=== PATIENT | male | born 1975 | race Caucasian/White ===

== ENCOUNTER → 2017-03-28 | Outpatient (REF) | payer BC ==
[~2017-03-28] MED LIST: CLAR1TAB13 PO
[2017-03-28 11:40] LABS: BASO # 0.1 10^3/uL (0.0-0.2); BASO % 1.4 % (0.0-1.0); EOS # 0.2 10^3/uL (0.0-0.50); EOS % 2.4 % (0.0-3.0); IMMATURE GRANULOCYTE % 0.6 % (0-0); LYMPH % 30.9 % (24.0-44.0); MEAN CORPUSCULAR HEMOGLOBIN 18.1 pg (27.0-33.0); MEAN CORPUSCULAR HEMOGLOBIN 18.2 pg (27.0-33.0); MEAN CORPUSCULAR HGB CONC 30.4 g/dl (32.0-36.5); MEAN CORPUSCULAR VOLUME 59.5 fl (80.0-96.0); MEAN CORPUSCULAR VOLUME 59.9 fl (80.0-96.0); MONO # 0.5 10^3/uL (0.0-0.8); MONO % 7.8 % (0.0-5.0); NEUTROPHILS # 3.7 10^3/uL (1.8-7.7); NEUTROPHILS % 56.9 % (36.0-66.0); PLATELET COUNT, AUTOMATED 203 10^3/uL (150-450); PLATELET COUNT, AUTOMATED 206 10^3/uL (150-450); RED CELL DISTRIBUTION WIDTH 17.2 % (11.5-14.5); RED CELL DISTRIBUTION WIDTH 17.3 % (11.5-14.5); WHITE BLOOD COUNT 6.6 10^3/uL (4.0-10.0)
[2017-03-28 12:09] LABS: FREE T4 1.18 NG/DL (0.76-1.46); PERCENT SATURATION 21.4 % (19.7-50.0)
[2017-03-28 12:22] LABS: ALBUMIN 4.2 GM/DL (3.2-5.2); ALBUMIN/GLOBULIN RATIO 1.27 (1.00-1.93); ALKALINE PHOSPHATASE 88 U/L (45-117); ALT/SGPT 33 U/L (12-78); ANION GAP 6 MEQ/L (8-16); AST/SGOT 15 U/L (7-37); BILIRUBIN,TOTAL 0.8 MG/DL (0.2-1.0); BLOOD UREA NITROGEN 15 MG/DL (7-18); CALCIUM LEVEL 8.8 MG/DL (8.5-10.1); CARBON DIOXIDE LEVEL 30 MEQ/L (21-32); CHLORIDE LEVEL 102 MEQ/L (98-107); CREATININE FOR GFR 1.03 MG/DL (0.70-1.30); GLOMERULAR FILTRATION RATE > 60.0 (>60); GLUCOSE, FASTING 106 MG/DL (70-105); SODIUM LEVEL 138 MEQ/L (136-145); TOTAL PROTEIN 7.5 GM/DL (6.4-8.2)
[2017-03-29 12:47] LABS: ALBUMIN % 63.4 % (55.8-66.1); GAMMA GLOBULIN % 13.4 % (11.1-18.8)
== END ==
LOC: M SFHCCLAY 07:20
PROVIDERS: ATTEND Family Medicine
DX: K13.79 Other lesions of oral mucosa (principal); R05 Cough; R73.01 Impaired fasting glucose

== ENCOUNTER 2017-04-01 02:03 | Emergency (ER) | payer BC ==
[~2017-04-01] VITALS: Ht 182.9 cm; Wt 107.3 kg
[2017-04-01] MEDS ORDERED: CLAR1TAB13 PO (04:53)
[2017-04-01 05:01] VITALS: BP 141/85
--- NOTE | 2017-04-01 19:34 | ECGEPIP ---
Stationary ECG Study [facility] - ED Test Date: 2017-04-01 Pat Name: SHAI ZAVALA Department: Room: - Gender: M Adolescent Coordinator: PayneB: 1975 Requested By: Byrce Shepard Order Number: [id number] Reading MD: Willie Gaitan Measurements Intervals [place] Rate: 63 P: 39 OH: 145 QRS: 34 QRSD: 107 T: 6 QT: 393 QTc: 404 Interpretive Statements SINUS RHYTHM NO OLD ECG FOR COMPARISON Electronically Signed On 04-01-2017 19:34:17 EST by Willie Gaitan
== END 2017-04-01 05:35 | disposition home or self-care (01) ==
LOC: M ED 02:03
DX: R00.2 Palpitations (principal)

== ENCOUNTER → 2017-04-18 | Outpatient (CLI) | payer OTHER | LOC: M CLY 09:38 | DX: M50.30 Other cervical disc degeneration, unspecified cervical region (principal) | CPT/HCPCS: 71046 ==

== ENCOUNTER → 2017-04-20 | Outpatient (CLI) | payer OTHER | LOC: M EKG 11:01 | DX: R00.2 Palpitations (principal) | CPT/HCPCS: 93225 ==

== ENCOUNTER → 2018-01-24 | Outpatient (REF) | payer OTHER | LOC: M SFHCCLAY 16:10 | DX: J02.9 Acute pharyngitis, unspecified (principal) ==

== ENCOUNTER → 2018-04-29 | Outpatient (REF) | payer OTHER ==
[2018-05-02 00:06] LABS: Lyme Disease IgG/IgM Antibodie <0.91 ISR (0.00-0.90); Lyme Disease IgM Ab Quantitati <0.80 index (0.00-0.79)
== END ==
LOC: M SFHCCLAY 13:26
PROVIDERS: ATTEND Family Medicine
DX: M79.10 Myalgia, unspecified site (principal)

== ENCOUNTER → 2019-07-17 | Outpatient (CLI) | payer OTHER ==
--- NOTE | 2019-07-17 15:24 | REP ---
Chest x-ray: Two views. History: Bronchitis. Comparison chest x-ray: April 18, 2017. Findings: The lungs are symmetrically aerated and clear. Pleural angles are sharp. Heart size is normal. No significant bony abnormality is seen. Pulmonary vasculature is not increased. There is a mild dextro-convex curvature in the thoracic spine. Impression: No acute disease. Electronically Signed by Diaz Maurice MD 07/17/2019 03:16 P
== END ==
LOC: M CLY 14:41
PROVIDERS: ATTEND Family Medicine
DX: J40 Bronchitis, not specified as acute or chronic (principal)

== ENCOUNTER → 2019-07-29 | Outpatient (CLI) | payer OTHER ==
--- NOTE | 2019-07-30 04:23 | REP ---
Clinical: Cervical radiculopathy. Technique: AP, lateral, flexion/extension, bilateral oblique, and open-mouth views of the cervical spine. Comparison: 04/18/2017. Findings: Alignment and lordosis maintained. Minimal degenerative changes at C4-5 and C5-6 includes small anterior spurring with minimal endplate sclerosis and subtle disc space narrowing. Findings are essentially unchanged compared to prior examination. No acute fracture / compression injury or subluxation. Open mouth view demonstrates normal C1-C2 articulation and odontoid process. Impression: Mild degenerative changes at C4-5 and C5-6. Electronically Signed by Arash Taylor MD 07/30/2019 04:14 A
== END ==
LOC: M CLY 08:20
PROVIDERS: ATTEND Family Medicine
DX: M54.12 Radiculopathy, cervical region (principal)

== ENCOUNTER → 2020-01-20 | Outpatient (REF) | payer OTHER | LOC: M SFHCCLAY 09:01 | PROVIDERS: ATTEND Family Medicine | DX: R30.0 Dysuria (principal) ==

== ENCOUNTER → 2020-07-19 | Outpatient (CLI) | payer OTHER ==
--- NOTE | 2020-07-19 10:39 | REP ---
INDICATION: R07.89 history of left lower chest pain and left upper abdominal pain COMPARISON: 07/17/2019 TECHNIQUE: PA and lateral. FINDINGS: The mediastinum and cardiac silhouette are normal. The lung vasquez are clear and without acute consolidation, effusion, or pneumothorax. The skeletal structures are intact and normal. IMPRESSION: No acute cardiopulmonary process. <Electronically signed by Arash Taylor > 07/19/20 [id number]
== END ==
LOC: M CLY 10:15
PROVIDERS: ATTEND Family Medicine
DX: R07.89 Other chest pain (principal)

== ENCOUNTER → 2020-07-29 | Outpatient (CLI) | payer OTHER ==
--- NOTE | 2020-07-29 12:49 | REP ---
INDICATION: RT EPIDIDYMAL TENDERNESS, SUSPECT CYST COMPARISON: None. TECHNIQUE: Flores scale and color Doppler evaluation using linear and curved array transducer with color Doppler evaluation. FINDINGS: The testicles and epididymi are relatively normal in contour, size, echogenicity, vascularity and overall appearance. Incidental 2 mm left testicular cyst appears essentially benign. There is no evidence for intratesticular mass lesion, infectious/inflammatory process, or torsion. Small symmetric hydroceles are nonspecific. No varicoceles are identified. Right testicle measures 4.6 x 2.4 x 3.1 cm. Left testicle measures 4.2 x 2.6 x 3.0 cm. IMPRESSION: Essentially normal scrotal ultrasound. <Electronically signed by Arash Taylor > 07/29/20 [id number]
== END ==
LOC: M RAD 12:07
PROVIDERS: ATTEND Family Medicine
DX: N45.1 Epididymitis (principal)

== ENCOUNTER → 2021-02-02 | Outpatient (REF) | payer OTHER ==
[2021-02-02 11:51] LABS: BASO # 0.1 10^3/uL (0.0-0.2); BASO % 1.2 % (0.0-1.0); EOS # 0.2 10^3/uL (0.0-0.5); EOS % 2.4 % (0.0-3.0); HEMATOCRIT 45.3 % (42.0-52.0); HEMOGLOBIN 13.3 g/dl (13.5-17.5); LYMPH # 2.6 10^3/uL (1.5-5.0); LYMPH % 34.2 % (24.0-44.0); MEAN CORPUSCULAR HGB CONC 29.4 g/dl (32.0-36.5); MEAN CORPUSCULAR VOLUME 61.3 fl (80.0-96.0); MONO # 0.6 10^3/uL (0.0-0.8); MONO % 8.2 % (2.0-8.0); NEUTROPHILS % 53.2 % (36.0-66.0); PLATELET COUNT, AUTOMATED 230 10^3/uL (150-450); RED BLOOD COUNT 7.39 10^6/uL (4.30-6.10); WHITE BLOOD COUNT 7.6 10^3/uL (4.0-10.0)
[2021-02-02 12:30] LABS: ALBUMIN 4.2 GM/DL (3.2-5.2); ALT/SGPT 27 U/L (12-78); BILIRUBIN,TOTAL 0.6 MG/DL (0.2-1.0); BLOOD UREA NITROGEN 16 MG/DL (7-18); CALCIUM LEVEL 9.4 MG/DL (8.5-10.1); CARBON DIOXIDE LEVEL 32 MEQ/L (21-32); CHLORIDE LEVEL 104 MEQ/L (98-107); CREATININE FOR GFR 0.94 MG/DL (0.70-1.30); GLOMERULAR FILTRATION RATE > 60.0 (>60); GLUCOSE, FASTING 106 MG/DL (70-100); LIPASE 147 U/L (73-393); POTASSIUM SERUM 4.8 MEQ/L (3.5-5.1); SODIUM LEVEL 136 MEQ/L (136-145); TOTAL PROTEIN 7.6 GM/DL (6.4-8.2)
[2021-02-03 07:27] LABS: IRON (FE) 72 UG/DL (65-175); PERCENT SATURATION 22.2 % (19.7-50.0); TOTAL IRON BINDING CAPACITY 324 UG/DL (250-450)
== END ==
LOC: M SFHCCLAY 09:00
PROVIDERS: ATTEND Family Medicine
DX: R10.12 Left upper quadrant pain (principal)

== ENCOUNTER → 2021-02-04 | Outpatient (REF) | payer OTHER | LOC: M SFHCCLAY 08:14 | PROVIDERS: ATTEND Family Medicine | DX: R71.8 Other abnormality of red blood cells (principal) ==

== ENCOUNTER → 2021-02-10 | Outpatient (CLI) | payer OTHER ==
[~2021-02-10] MED LIST changes: +GASTROGRAFIN SOLUTION 30ML (Q9963) As Ordered ONE; +ISOVUE-370 76% 100ML VIAL As Ordered ONE
--- NOTE | 2021-02-10 17:02 | REP ---
INDICATION: LUQ PAIN. COMPARISON: None. TECHNIQUE: Standard helical technique after the intravenous administration of 100 cc Isovue 370. Oral bowel preparatory contrast was also administered prior to the exam. FINDINGS: The lung bases are clear. In the medial segment of the left lobe of the liver there is a 2.4 cm sized mixed density lesion. The liver is otherwise unremarkable. The spleen appears mildly enlarged. The gallbladder, pancreas, adrenal glands, and kidneys are within normal limits. Two 9 mm sized focal areas of decreased density are seen 1 in each kidney. The abdominal aorta and para-aortic regions are within normal limits. The bowel loops and the mesenteries are within normal limits. There is no evidence of a mass or adenopathy. There is no free fluid or free air. Bone window technique throughout the examination shows the osseous structures to be within normal limits. IMPRESSION: 1. There is a lesion in the medial segment of the left lobe of the liver as described above. I cannot confirm benignity at this time since this is a single phase exam. Pre and post gadolinium enhanced hepatic MRI is recommended for complete evaluation. 2. The spleen is full sized, possibly slightly enlarged. Ultrasonography with splenic volumetric index calculation would give further information if clinically relevant. 3. Probable small bilateral renal cortical cysts, however, they are too small for precise CT characterization on this single-phase exam. These can also be evaluated with the aforementioned recommended MRI provided they are included in the region of interest. 4. Although there is no evidence of a bowel abnormality that does not obviate further imaging with colonoscopy if a bowel abnormality is of clinical concern. <Electronically signed by Aakash Patton > 02/10/21 [id number]
== END ==
LOC: M RAD 15:04
PROVIDERS: ATTEND Family Medicine
DX: K76.9 Liver disease, unspecified (principal); E78.2 Mixed hyperlipidemia; I10 Essential (primary) hypertension; R10.12 Left upper quadrant pain; Z88.8 Allergy status to other drugs, medicaments and biological substances
CPT/HCPCS: 74177; Q9963; Q9967

== ENCOUNTER → 2021-02-18 | Outpatient (CLI) | payer OTHER ==
[~2021-02-18] MED LIST changes: -GASTROGRAFIN SOLUTION 30ML (Q9963) As Ordered ONE; -ISOVUE-370 76% 100ML VIAL As Ordered ONE; +PROHANCE 279.3MG/ML 15ML VIAL As Ordered ONE; +PROHANCE 279.3MG/ML 5ML VIAL As Ordered ONE
--- NOTE | 2021-02-18 15:58 | REP ---
INDICATION: ABN CT, MIXED DENSITY LESION LT LOBE OF LIVER. COMPARISON: None. TECHNIQUE: Pre and post contrast 3T MRI of the liver was performed utilizing various sequences. Gadolinium utilized: 20 cc ProHance FINDINGS: Seen in the medial segment of the left lobe of the liver there is a 2 x 1.7 cm sized focal T2 hyper signal lesion. The lesion shows increasing peripheral nodular enhancement in till it is completely enhanced on late phase imaging. There are no other liver lesions. There is mild splenomegaly. There is no para-aortic adenopathy. The pancreas and adrenal glands are within normal limits. There are small bilateral renal cysts. There is no free fluid. The cortical and marrow signal seen throughout the imaged osseous structures is within normal limits. IMPRESSION: 1. The low-density lesion seen on the prior CT represents the enhancing lesion seen today in the medial segment of the left lobe of the liver and is consistent with a benign hepatic hemangioma. 2. There is mild splenomegaly of uncertain etiology. 3. Small bilateral renal cysts <Electronically signed by Aakash Patton > 02/18/21 [id number]
== END ==
LOC: M RAD 14:16
PROVIDERS: ATTEND Family Medicine
DX: R93.5 Abnormal findings on diagnostic imaging of other abdominal regions, including retroperitoneum (principal); R16.1 Splenomegaly, not elsewhere classified; N28.1 Cyst of kidney, acquired; K76.89 Other specified diseases of liver
CPT/HCPCS: 74183; A9576

== ENCOUNTER → 2021-08-17 | Outpatient (CLI) | payer OTHER ==
[~2021-08-17] MED LIST changes: -PROHANCE 279.3MG/ML 15ML VIAL As Ordered ONE; -PROHANCE 279.3MG/ML 5ML VIAL As Ordered ONE
== END ==
LOC: M RAD 11:58
PROVIDERS: ATTEND Family Medicine
DX: K11.8 Other diseases of salivary glands (principal); D37.030 Neoplasm of uncertain behavior of the parotid salivary glands

== ENCOUNTER → 2021-09-19 | Outpatient (CLI) | payer OTHER ==
[~2021-09-19] MED LIST changes: +LIDOCAINE 1% MDV 20ML VIAL As Ordered ONE; +NEXI20CA PO
[2021-09-19 09:59] VITALS: BP 173/119
== END ==
LOC: M IRPRO 09:10
PROVIDERS: ATTEND Otolaryngology
DX: D11.9 Benign neoplasm of major salivary gland, unspecified (principal)

== ENCOUNTER 2022-02-02 10:06 | Emergency (ER) | payer OTHER ==
[~2022-02-02] VITALS: Ht 182.9 cm; Wt 109.8 kg
[~2022-02-02 10:06] MED LIST changes: -LIDOCAINE 1% MDV 20ML VIAL As Ordered ONE
[2022-02-02 12:58] LABS: BASO # 0.1 10^3/uL (0.0-0.2); BASO % 0.4 % (0.0-1.0); EOS # 0.2 10^3/uL (0.0-0.5); EOS % 0.9 % (0.0-3.0); HEMATOCRIT 42.8 % (42.0-52.0); LYMPH # 1.7 10^3/uL (1.5-5.0); LYMPH % 10.3 % (24.0-44.0); MEAN CORPUSCULAR HEMOGLOBIN 18.6 pg (27.0-33.0); MEAN CORPUSCULAR HGB CONC 30.4 g/dl (32.0-36.5); MEAN CORPUSCULAR VOLUME 61.3 fl (80.0-96.0); MONO # 1.1 10^3/uL (0.0-0.8); MONO % 6.4 % (2.0-8.0); NEUTROPHILS # 13.4 10^3/uL (1.5-8.5); NEUTROPHILS % 81.4 % (36.0-66.0); PLATELET COUNT, AUTOMATED 210 10^3/uL (150-450); RED BLOOD COUNT 6.98 10^6/uL (4.30-6.10); WHITE BLOOD COUNT 16.5 10^3/uL (4.0-10.0)
[2022-02-02] MEDS ORDERED: GI COCKTAIL 50ML BTL(HYOSCYAMINE/MAALOX/LIDOCAINE VISCOUS)(1:3:1) PO ONE (13:20)
[2022-02-02 13:36] LABS: ALBUMIN 4.1 GM/DL (3.2-5.2); ALT/SGPT 235 U/L (12-78); BILIRUBIN,DIRECT 0.8 MG/DL (0.0-0.2); BILIRUBIN,TOTAL 2.1 MG/DL (0.2-1.0); BLOOD UREA NITROGEN 14 MG/DL (7-18); CALCIUM LEVEL 9.1 MG/DL (8.5-10.1); CARBON DIOXIDE LEVEL 28 MEQ/L (21-32); CHLORIDE LEVEL 103 MEQ/L (98-107); CK-MB VALUE MASS < 1.0 NG/ML (<3.6); CPK CREATINE PHOSPHOKINASE 71 U/L (39-308); CREATININE FOR GFR 1.04 MG/DL (0.70-1.30); GLOMERULAR FILTRATION RATE > 60.0 (>60); GLUCOSE, FASTING 86 MG/DL (70-100); MB/CK RELATIVE INDEX 1.41 (< OR =4); SODIUM LEVEL 136 MEQ/L (136-145); TOTAL PROTEIN 7.5 GM/DL (6.4-8.2)
[2022-02-02] MEDS ORDERED: ISOVUE-370 76% 100ML VIAL As Ordered ONE (13:49)
[2022-02-02 14:30] LABS: INR 1.04; PROTHROMBIN TIME 13.8 SECONDS (12.5-14.5)
[2022-02-02 14:31] LABS: PARTIAL THROMBOPLASTIN TIME 29.2 SECONDS (24.8-34.2)
[2022-02-02 15:01] LABS: CK-MB VALUE MASS < 1.0 NG/ML (<3.6); CPK CREATINE PHOSPHOKINASE 55 U/L (39-308); MB/CK RELATIVE INDEX 1.82 (< OR =4)
[2022-02-02 15:06] LABS: C REACTIVE PROTEIN QUANTITATIV 4.99 MG/DL (0.00-0.30); THYROID STIMULATING HORMONE 0.724 uIU/ML (0.358-3.740)
[2022-02-02 16:00] VITALS: BP 129/82
[2022-02-02] MEDS ORDERED: ACETAMINOPHEN TAB 650MG DOSE (2X325MG) PO ONE (16:55)
[2022-02-02] MEDS ORDERED: DOXY-443 PO (17:14)
== END 2022-02-02 17:44 | disposition home or self-care (01) ==
LOC: M ED 10:06
DX: R07.89 Other chest pain (principal); E78.5 Hyperlipidemia, unspecified; K21.9 Gastro-esophageal reflux disease without esophagitis; K76.0 Fatty (change of) liver, not elsewhere classified; R16.1 Splenomegaly, not elsewhere classified; N28.1 Cyst of kidney, acquired; Z79.899 Other long term (current) drug therapy
CPT/HCPCS: 71045; 71275; 74174; 76705; 80048; 80076; 82550; 82553; 83690; 84443; 84484; 85025; 85610; 85652; 85730; 86140; 86618; 87040; 87486; 87581; 87633; 87798; 93005; 93041; 94760; 99285; Q9967

== ENCOUNTER → 2022-03-15 | Outpatient (CLI) | payer OTHER ==
[~2022-03-15] MED LIST changes: +DOXY-443 PO
== END ==
LOC: M RAD 12:48
PROVIDERS: ATTEND Otolaryngology
DX: D37.030 Neoplasm of uncertain behavior of the parotid salivary glands (principal)

== ENCOUNTER → 2022-05-01 | Outpatient (REF) | payer OTHER | LOC: M SFHCDERM 17:12 | PROVIDERS: ATTEND Nurse Practitioner Family | DX: C49.0 Malignant neoplasm of connective and soft tissue of head, face and neck (principal) ==

== ENCOUNTER → 2022-06-07 | Outpatient (CLI) | payer OTHER | LOC: M SLEEP 20:00 | PROVIDERS: ATTEND Physician Assistant | DX: G47.33 Obstructive sleep apnea (adult) (pediatric) (principal); R40.0 Somnolence ==

== ENCOUNTER → 2022-07-11 | Outpatient (REF) | payer OTHER ==
[2022-07-11 20:49] LABS: ALBUMIN 4.2 G/DL (3.2-5.2); ALKALINE PHOSPHATASE 88 U/L (46-116); ALT/SGPT 23 U/L (7.0-40); AST/SGOT 14 U/L (<34); BILIRUBIN,TOTAL 0.8 MG/DL (0.3-1.2); BLOOD UREA NITROGEN 14 MG/DL (9-23); CARBON DIOXIDE LEVEL 27 MMOL/L (20-31); CHLORIDE LEVEL 104 MMOL/L (98-107); CREATININE FOR GFR 0.92 MG/DL (0.70-1.30); GLOMERULAR FILTRATION RATE > 60.0 (>60); GLUCOSE, FASTING 99 MG/DL (60-100); POTASSIUM SERUM 5.1 MMOL/L (3.5-5.1); SODIUM LEVEL 138 MMOL/L (136-145)
[2022-07-11 20:51] LABS: FOLLICLE STIMULATING HORMONE 6.2 mIU/ML (1.4-18.1); LUTEINIZING HORMONE 2.3 mIU/ML (1.5-9.3)
[2022-07-11 20:52] LABS: THYROID STIMULATING HORMONE 1.834 uIU/ML (0.55-4.78)
[2022-07-11 20:53] LABS: FREE T4 1.39 NG/DL (0.89-1.76)
== END ==
LOC: M SFHCCLAY 09:45
PROVIDERS: ATTEND Surgery
DX: N62 Hypertrophy of breast (principal)

== ENCOUNTER → 2022-09-11 | Outpatient (CLI) | payer OTHER | LOC: M WHC 15:27 | PROVIDERS: ATTEND Surgery | DX: N62 Hypertrophy of breast (principal); D24.2 Benign neoplasm of left breast ==

== ENCOUNTER → 2022-09-27 | Outpatient (CLI) | payer OTHER | LOC: M RAD 07:13 | PROVIDERS: ATTEND Otolaryngology | DX: J35.1 Hypertrophy of tonsils (principal) ==

== ENCOUNTER → 2022-10-13 | Outpatient (CLI) | payer OTHER | LOC: M RAD 16:51 | PROVIDERS: ATTEND Otolaryngology | DX: D37.030 Neoplasm of uncertain behavior of the parotid salivary glands (principal) ==

== ENCOUNTER 2023-02-22 10:08 | Day surgery (SDC) | payer OTHER ==
[~2023-02-22] VITALS: Ht 182.9 cm; Wt 105.1 kg
[~2023-02-22 10:08] MED LIST changes: +LISI20TA33 PO
[2023-02-22] MEDS: NS 1,000 ML IV ONE (10:45)
[2023-02-22] MEDS ORDERED: fentaNYL 100 MCG/2 ML INJECTION As Ordered ONE (11:33)
[2023-02-22] MEDS ORDERED: propofoL 200 MG/20 ML VIAL As Ordered ONE ×3 (11:40→12:33)
[2023-02-22] MEDS ORDERED: LIDOCAINE 2% 100MG/5ML SDV (FOR ANES.) As Ordered ONE (12:03)
[2023-02-22 13:27] VITALS: BP 125/76; TEMP 98.2; O2SAT 98
== END 2023-02-22 13:31 | disposition home or self-care (01) ==
LOC: M OPP 10:08
PROVIDERS: ATTEND Internal Medicine Gastroenterology
DX: Z12.11 Encounter for screening for malignant neoplasm of colon (principal); K64.8 Other hemorrhoids; K29.50 Unspecified chronic gastritis without bleeding; K21.00 Gastro-esophageal reflux disease with esophagitis, without bleeding; K22.89 Other specified disease of esophagus; K44.9 Diaphragmatic hernia without obstruction or gangrene; I10 Essential (primary) hypertension; K58.9 Irritable bowel syndrome, unspecified; J45.909 Unspecified asthma, uncomplicated; G47.30 Sleep apnea, unspecified; D56.9 Thalassemia, unspecified; N62 Hypertrophy of breast; Z86.14 Personal history of Methicillin resistant Staphylococcus aureus infection; Z88.8 Allergy status to other drugs, medicaments and biological substances; Z79.899 Other long term (current) drug therapy
CPT/HCPCS: 43239; 45380; 88305; J3010

== ENCOUNTER → 2023-03-29 | Outpatient (CLI) | payer OTHER | LOC: M CARPUL 10:37 | PROVIDERS: ATTEND Nurse Practitioner Family | DX: I49.3 Ventricular premature depolarization (principal); I08.1 Rheumatic disorders of both mitral and tricuspid valves ==

== ENCOUNTER → 2023-04-04 | Outpatient (REF) | payer OTHER | LOC: M SFHCCLAY 09:15 | PROVIDERS: ATTEND Physician Assistant | DX: B34.9 Viral infection, unspecified (principal); Z53.9 Procedure and treatment not carried out, unspecified reason ==

== ENCOUNTER 2023-04-30 08:54 | Day surgery (SDC) | payer OTHER ==
[~2023-04-30] VITALS: Ht 182.9 cm; Wt 112.0 kg
[2023-04-30] MEDS ORDERED: ONDANSETRON 4MG 2ML VIAL As Ordered ONE (10:24)
[2023-04-30] MEDS ORDERED: SUGAMMADEX SODIUM 500 MG/5 ML VIAL (BRIDION) As Ordered ONE (10:24)
[2023-04-30] MEDS ORDERED: ROCURONIUM BROMIDE 50MG/5ML VIAL As Ordered ONE (10:24)
[2023-04-30] MEDS ORDERED: LIDOCAINE 2% 100MG/5ML SDV (FOR ANES.) As Ordered ONE (10:24)
[2023-04-30] MEDS ORDERED: METOCLOPRAMIDE INJ 10MG/2ML VIAL As Ordered ONE (10:24)
[2023-04-30] MEDS ORDERED: propofoL 200 MG/20 ML VIAL As Ordered ONE (10:24)
[2023-04-30] MEDS ORDERED: fentaNYL 100 MCG/2 ML INJECTION As Ordered ONE ×2 (10:26→11:00)
[2023-04-30] MEDS ORDERED: MIDAZOLAM INJ 2MG/2ML VIAL As Ordered ONE (10:26)
[2023-04-30] MEDS ORDERED: fentaNYL 100 MCG/2 ML INJECTION IV PRN (11:20)
[2023-04-30] MEDS ORDERED: LR 1,000 ML IV SCH ×2 (11:20→12:00)
[2023-04-30] MEDS ORDERED: HYDROMORPHONE HCL 0.5 MG/ 0.5 ML SYRINGE IV PRN (11:20)
[2023-04-30] MEDS ORDERED: ONDANSETRON 4MG 2ML VIAL IV PRN (11:20)
[2023-04-30] MEDS ORDERED: oxyCODONE 5MG TAB PO PRN (11:20)
[2023-04-30] MEDS ORDERED: HYDROcodone/APAP LIQUID 7.5-325MG 15ML UDC (LORTAB ELIXIR) PO PRN (12:00)
[2023-04-30 12:16] VITALS: BP 123/80; TEMP 98.1; O2SAT 95
== END 2023-04-30 12:37 | disposition home or self-care (01) ==
LOC: M SDC 08:54
PROVIDERS: ATTEND Otolaryngology
DX: J35.01 Chronic tonsillitis (principal); G47.30 Sleep apnea, unspecified; I10 Essential (primary) hypertension; K21.9 Gastro-esophageal reflux disease without esophagitis; Z88.8 Allergy status to other drugs, medicaments and biological substances; Z79.899 Other long term (current) drug therapy
CPT/HCPCS: 42826; 88302; J0665; J2250; J2405; J2765; J3010

== ENCOUNTER → 2023-08-23 | Outpatient (CLI) | payer OTHER ==
[~2023-08-23] MED LIST changes: +DOXY-323 PO; -DOXY-443 PO
== END ==
LOC: M SLEEP HO 11:07
PROVIDERS: ATTEND Physician Assistant
DX: G47.33 Obstructive sleep apnea (adult) (pediatric) (principal)

== ENCOUNTER → 2023-09-10 | Outpatient (REF) | payer OTHER ==
[2023-09-10 12:41] LABS: ALBUMIN 3.7 G/DL (3.2-5.2); ALKALINE PHOSPHATASE 93 U/L (46-116); ALT/SGPT 26 U/L (7.0-40); AST/SGOT 13 U/L (<34); BLOOD UREA NITROGEN 19 MG/DL (9-23); CALCIUM LEVEL 8.9 MG/DL (8.5-10.1); CARBON DIOXIDE LEVEL 27 MMOL/L (20-31); CHLORIDE LEVEL 108 MMOL/L (98-107); CHOLESTEROL LEVEL 200 MG/DL (<200); CREATININE FOR GFR 0.92 MG/DL (0.70-1.30); GLOMERULAR FILTRATION RATE > 60.0 (>60); GLUCOSE, FASTING 115 MG/DL (60-100); HDL CHOLESTEROL 45.4 MG/DL (>40); NON-HDL-C 154.6 MG/DL; POTASSIUM SERUM 4.4 MMOL/L (3.5-5.1); SODIUM LEVEL 140 MMOL/L (136-145); TOTAL PROTEIN 6.4 G/DL (5.7-8.2); TRIGLYCERIDES LEVEL 93 MG/DL (<150)
[2023-09-10 12:42] LABS: THYROID STIMULATING HORMONE 1.053 uIU/ML (0.55-4.78)
[2023-09-11 19:07] LABS: TESTOSTERONE FREE (DIRECT) 12.5 pg/mL (6.8-21.5)
== END ==
LOC: M SFHCCLAY 08:46
PROVIDERS: ATTEND Family Medicine
DX: K21.9 Gastro-esophageal reflux disease without esophagitis (principal); E78.00 Pure hypercholesterolemia, unspecified; R53.82 Chronic fatigue, unspecified

== ENCOUNTER → 2023-12-17 | Outpatient (CLI) | payer OTHER | LOC: M SLEEP 20:00 | PROVIDERS: ATTEND Physician Assistant | DX: G47.33 Obstructive sleep apnea (adult) (pediatric) (principal) ==

== ENCOUNTER → 2024-03-04 | Outpatient (REF) | payer OTHER ==
[~2024-03-04] MED LIST changes: -DOXY-323 PO; +DOXY-441 PO
[2024-03-04 18:02] LABS: AMORPHOUS SEDIMENT SMALL (NEGATIVE); APPEARANCE, URINE HAZY (CLEAR); BACTERIA, URINE AUTO NEGATIVE (NEGATIVE); BILIRUBIN, URINE AUTO NEGATIVE (NEGATIVE); BLOOD, URINE BLOOD NEGATIVE (NEGATIVE); COLOR, URINE YELLOW (YELLOW); GLUCOSE, URINE (UA) AUTO NEGATIVE (NEGATIVE); KETONE, URINE AUTO NEGATIVE (NEGATIVE); LEUKOCYTE ESTERASE, URINE AUTO NEGATIVE (NEGATIVE); MUCUS, URINE SMALL (NEGATIVE); NITRITE, URINE AUTO NEGATIVE (NEGATIVE); PROTEIN, URINE AUTO NEGATIVE (NEGATIVE); RBC, URINE AUTO 0 /HPF (0-3); SPECIFIC GRAVITY URINE AUTO 1.019 (1.002-1.035); SQUAMOUS EPITHELIAL CELL UR AU 0 /HPF (0-6); UROBILINOGEN, URINE AUTO 0.2 mg/dL (0.0-2.0); WBC, URINE AUTO 0 /HPF (0-3)
== END ==
LOC: M SFHCCLAY 14:32
PROVIDERS: ATTEND Family Medicine
DX: Z12.5 Encounter for screening for malignant neoplasm of prostate (principal); R30.0 Dysuria
CPT/HCPCS: 81001; G0103

== ENCOUNTER → 2024-07-11 | Outpatient (REF) | payer OTHER ==
[2024-07-11 18:21] LABS: HEMOGLOBIN A1c 5.6 % (4.0-6.0)
[2024-07-11 18:28] LABS: ALBUMIN 4.4 G/DL (3.2-5.2); ALKALINE PHOSPHATASE 99 U/L (40-129); ALT/SGPT 30 U/L (7.0-40); AST/SGOT 14 U/L (<34); BILIRUBIN,TOTAL 1.1 MG/DL (0.3-1.2); BLOOD UREA NITROGEN 16 MG/DL (9-23); CARBON DIOXIDE LEVEL 27 MMOL/L (20-31); CHLORIDE LEVEL 103 MMOL/L (98-107); CHOLESTEROL LEVEL 232 MG/DL (<200); CHOLESTEROL RISK RATIO 5.22 (<5); CREATININE FOR GFR 0.96 MG/DL (0.70-1.30); GLOMERULAR FILTRATION RATE > 60.0 (>60); GLUCOSE, FASTING 104 MG/DL (60-100); HDL CHOLESTEROL 44.4 MG/DL (>40); LDL CHOLESTEROL 163.8 MG/DL (<100); NON-HDL-C 187.6 MG/DL; POTASSIUM SERUM 4.9 MMOL/L (3.5-5.1); SODIUM LEVEL 138 MMOL/L (136-145); TOTAL PROTEIN 7.3 G/DL (5.7-8.2); TRIGLYCERIDES LEVEL 119 MG/DL (<150)
== END ==
LOC: M SFHCCLAY 10:35
PROVIDERS: ATTEND Physician Assistant
DX: I10 Essential (primary) hypertension (principal); N52.9 Male erectile dysfunction, unspecified; K21.9 Gastro-esophageal reflux disease without esophagitis; E78.00 Pure hypercholesterolemia, unspecified; D56.3 Thalassemia minor; I49.3 Ventricular premature depolarization; G47.33 Obstructive sleep apnea (adult) (pediatric)

== ENCOUNTER → 2024-08-20 | Outpatient (CLI) | payer OTHER | LOC: M CARPUL 10:03 | PROVIDERS: ATTEND Physician Assistant | DX: R06.09 Other forms of dyspnea (principal) ==

== ENCOUNTER → 2024-12-12 | Outpatient (REF) | payer OTHER ==
[2024-12-12 18:49] LABS: PSA SCREENING 0.29 NG/ML (< 4.00)
[2024-12-12 18:52] LABS: ALT/SGPT 41 U/L (7.0-40); AST/SGOT 25 U/L (<34); CALCIUM LEVEL 9.3 MG/DL (8.5-10.1); CARBON DIOXIDE LEVEL 29 MMOL/L (20-31); CHLORIDE LEVEL 103 MMOL/L (98-107); CHOLESTEROL LEVEL 185 MG/DL (<200); CHOLESTEROL RISK RATIO 3.46 (<5); CREATININE FOR GFR 0.92 MG/DL (0.70-1.30); GLOMERULAR FILTRATION RATE > 90.0 (>60); LDL CHOLESTEROL 112.8 MG/DL (<100); NON-HDL-C 131.6 MG/DL; POTASSIUM SERUM 4.5 MMOL/L (3.5-5.1); SODIUM LEVEL 142 MMOL/L (136-145); TRIGLYCERIDES LEVEL 94 MG/DL (<150)
[2024-12-12 19:22] LABS: ESTIMATED AVERAGE GLUCOSE 120.0 MG/DL (60-110)
== END ==
LOC: M SFHCCLAY 09:39
PROVIDERS: ATTEND Physician Assistant
DX: I10 Essential (primary) hypertension (principal); N52.9 Male erectile dysfunction, unspecified; K21.9 Gastro-esophageal reflux disease without esophagitis; E78.00 Pure hypercholesterolemia, unspecified; D56.3 Thalassemia minor; I49.3 Ventricular premature depolarization; G47.33 Obstructive sleep apnea (adult) (pediatric); R06.09 Other forms of dyspnea; B35.1 Tinea unguium; Z12.5 Encounter for screening for malignant neoplasm of prostate
CPT/HCPCS: 80053; 80061; 83036; G0103

== ENCOUNTER → 2025-01-12 | Outpatient (CLI) | payer OTHER | LOC: M PLAIMG 08:27 | PROVIDERS: ATTEND Physician Assistant | DX: R10.9 Unspecified abdominal pain (principal) ==